=== PATIENT | male | born 1975 | race Caucasian/White ===

== ENCOUNTER 2016-09-30 14:44 | Emergency (ER) | payer OTHER ==
[~2016-09-30] VITALS: Ht 175.3 cm; Wt 79.2 kg
[2016-09-30 14:46] VITALS: TEMP 36.8; Ht 175.3 cm; Wt 79.2 kg
[2016-09-30] MEDS ORDERED: XYLOCAINE 1%/SOD BICARB 20 ML VIAL INFIL ONE (15:30)
[2016-09-30 16:56] VITALS: BP 123/73; PULSE 64; O2SAT 95
--- NOTE | 2016-10-01 20:01 | EMERGENCY ROOM VISIT NOTE ---
ED Visit Note First contact with patient: 14:51 Chief Complaint: I cut my left middle finger. History of Present Illness: Mr. López is a 41-year-old white male who ambulates into the ED accompanied by his complaining of a left middle finger laceration. 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 He reports he was working on a vehicle's brakes when his hand slipped and struck an object causing a laceration to the middle finger. He reports he attempted to control bleeding prior to arrival at the hospital but was unsuccessful. Currently he is complaining of a stinging pain in the area of his laceration. He rates his discomfort 5/10. His pain is nonradiating. His pain worsens with palpation. He has not identified any alleviating factors related to the pain. He has not taken a medication for pain prior to arrival at the hospital. Associated with his pain he reports a mild numbness sensation to the distal phalanx of the left middle finger. Review of Systems: As noted above in history of present illness. Past Medical History: Patient denies. Current Medications: Patient denies. Allergies to Medications: Patient denies. Social History: Patient is currently employed; he feels safe in his home environment; he admits to tobacco and alcohol use. Tetanus Immunization Status: Patient is unsure. Physical Examination: Vital Signs: Date Time Temp Pulse Resp B/P (MAP) Pulse Ox O2 Delivery O2 Flow Rate FiO2 09/30/16 16:56 64 18 123/73 95 09/30/16 14:46 36.8 83 20 147/78 96 Room Air GENERAL: 41-year-old male in mild distress due to pain, nontoxic-appearing, afebrile and hemodynamically stable. NEUROLOGICAL: Awake, alert and oriented to person, place and time. Answering questions appropriately and following commands. SKIN: Warm, dry and pink. Left Middle Finger. 2.2 cm full-thickness laceration over the lateral aspect of the DIP joint of the left index finger. Mild bleeding. LEFT MIDDLE FINGER: No gross bony deformity. Soft tissue injury as noted above. Mild tenderness over the laceration but no tenderness over the PIP joint or the middle or distal phalanx. Full range of motion and muscle strength in flexion and extension of the PIP and DIP joints. Throughout the finger the skin was warm and pink and capillary refill is brisk. He was able to distinguish light sensations through all dermatomes. ED Course: Patient is assessed as noted above. Patient's medication list was reviewed. Wound Repair: Complexity: Basic Verbal consent was obtained after the risks and benefits were explained. A digital block was performed with a total of 6 mL of buffered 1% lidocaine. The skin was prepped with betadine and a sterile field set. The wound was explored for foreign bodies and none found. Patient's finger and hand was cleansed with a surgical scrub brush. Copious irrigation was performed using sterile saline. With direct pressure the bleeding subsided. Debridement was not performed. The wound edges were approximated using 5-0 Ethilon with 4 simple interrupted sutures. Hemostasis and excellent approximation was achieved. Antibacterial ointment and a sterile dressing applied. The finger was placed in a metal finger splint. No complications and the patient tolerated the procedure well. Patient was educated about tonight's findings and instructed on his treatment plan; he verbalizes understanding and agreement with this plan. Clinical Impression: Laceration of the left middle finger. Disposition: Patient discharged home in stable condition; prior to departure he was reassessed and subjectively reported he was feeling much better. Plan: Comfort measures, wound care, and signs of infection were discussed with the patient. Patient was encouraged to follow-up with Workmen's Compensation or return to the ED for any signs of infection and/or suture removal in 10-12 days.
== END 2016-09-30 16:57 | disposition home or self-care (01) ==
LOC: C.EDB 14:45 → C.EDD 16:57
DX: S61.213A Laceration without foreign body of left middle finger without damage to nail, initial encounter (principal); W22.8XXA Striking against or struck by other objects, initial encounter; Y99.0 Civilian activity done for income or pay; F17.200 Nicotine dependence, unspecified, uncomplicated

== ENCOUNTER 2016-10-10 08:17 | Emergency (ER) | payer OTHER ==
[~2016-10-10] VITALS: Ht 177.8 cm; Wt 79.1 kg
[2016-10-10 08:22] VITALS: BP 135/86; PULSE 84; TEMP 36.8; O2SAT 97; Ht 177.8 cm; Wt 79.1 kg
--- NOTE | 2016-10-10 08:53 | EMERGENCY ROOM VISIT NOTE ---
ED Visit Note First contact with patient: 08:22 CHIEF COMPLAINT: Suture removal. HISTORY OF PRESENT ILLNESS: Mr. López is a 41-year-old male who ambulates into the ED requesting suture removal for left finger laceration he sustained 10 days ago. There has been no pain, swelling, redness, or drainage from the wound and he feels like the laceration is healing well. PHYSICAL EXAM: Vital Signs: Date Time Temp Pulse Resp B/P (MAP) Pulse Ox O2 Delivery O2 Flow Rate FiO2 10/10/16 08:22 36.8 84 20 135/86 97 Room Air General: 41-year-old white male in no acute distress, nontoxic-appearing, afebrile and hemodynamically stable. Neurological: Awake, alert and oriented 3. Answering questions appropriately and following commands. Left Middle Finger: Clean dry and intact wound without signs of infection ( erythema, swelling, tenderness, purulent drainage). Patient does report he still has some mild numbness sensation over the distal phalanx. ED COURSE: Patient is assessed as noted above. 4 sutures were removed without any difficulty and there was no separation of the wound edges. Patient is educated about today's findings and instructed on his treatment plan ; he verbalized understanding and agreement with this plan. DISPOSITION: Patient discharged home in stable condition. CLINICAL IMPRESSION: Suture removal; Well healing laceration. PLAN: Patient was encouraged to continue his current treatment plan for wound care and signs of infection. Patient was encouraged return ED for any signs of infection or any new/ concerning symptoms.
== END 2016-10-10 08:39 | disposition home or self-care (01) ==
LOC: C.EDB 08:19
DX: S61.213D Laceration without foreign body of left middle finger without damage to nail, subsequent encounter (principal); X58.XXXD Exposure to other specified factors, subsequent encounter

== ENCOUNTER 2017-05-14 08:02 | Emergency (ER) | payer BC, OTHER ==
[~2017-05-14] VITALS: Ht 175.3 cm; Wt 79.9 kg
[2017-05-14 08:06] VITALS: TEMP 37.2; Ht 175.3 cm; Wt 79.9 kg
--- NOTE | 2017-05-14 08:28 | EMERGENCY ROOM VISIT NOTE ---
History First contact with patient: 08:09 Chief Complaint: FLU LIKE SX Stated Complaint: FLU LIKE SX FOR PAST 4 DAYS History of Present Illness The patient is a 42 year old male who presents to the Emergency Room with complaints of flulike symptoms for the past 4 days. The patient reports he has had a cough, nasal congestion, body aches, and intermittent fevers for the past 4 days. The cough is productive of yellowish mucus in the morning. He reports he has had intermittent fevers and sweats but is unsure how high his temperature has been. His throat has been slightly sore and he also reports a headache. He has been taking Kori-Reliance, DayQuil, NyQuil and Advil without relief. He did not take any medication prior to arrival today. He rates his overall discomfort a 2/10. He has been eating and drinking normally. He denies nausea/vomiting, chest pain, shortness of breath or changes in bowel movements. He denies any sick contacts. Review of Systems A complete 10 point review of systems was reviewed with the patient with pertinent positives and negatives as per history of present illness. All else were negative. Past Medical/Surgical History Medical Problems: (1) No significant active problems Social History Smoking Status: Former Smoker Alcohol Use: occasionally Marital Status: , in relationship Housing Status: lives with family Current/Historical Medications No Active Prescriptions or Reported Meds Physical Exam Vital Signs Date Time Temp Pulse Resp B/P (MAP) Pulse Ox O2 Delivery O2 Flow Rate FiO2 05/14/17 09:21 85 18 134/76 98 Room Air 05/14/17 08:06 37.2 87 18 137/88 95 Room Air Physical Exam VITALS: Vitals are noted on the nurse's note and reviewed by myself. Vital signs stable. GENERAL: This is a 42-year-old male, in no acute distress, nondiaphoretic, well- developed well-nourished. SKIN: The skin was without rashes. EARS: External auditory canals clear, tympanic membranes pearly bunn without erythema or effusion bilaterally. EYES: Pupils equal round and reactive to light and accommodation. NOSE: Patent, turbinates without inflammation or discharge. MOUTH: Mucous membranes moist. Tonsils are not enlarged. Pharynx minimally erythematous. No exudate. NECK: Supple without nuchal rigidity. No lymphadenopathy. HEART: Regular rate and rhythm without murmurs gallops or rubs. LUNGS: Clear to auscultation bilaterally without wheezes, rales or rhonchi. No retractions or accessory muscle use. NEURO: Patient was alert and oriented to person place and time. Medical Decision & Procedures ER Provider Diagnostic Interpretation: TWO VIEW CHEST CLINICAL HISTORY: Cough and flulike symptoms. FINDINGS: PA and lateral chest radiographs are obtained. No prior studies are available for comparison at the time of dictation. The cardiomediastinal silhouette is unremarkable. The lungs and pleural spaces are clear. There is no pneumothorax. The bony thorax appears intact. IMPRESSION: No active disease in the chest. Laboratory Results Test 05/14/17 08:20 Influenza Type A Antigen Neg for Influ A (NEG) Influenza Type B Antigen POS for Influ B (NEG) Medical Decision Differential diagnosis includes pneumonia, influenza, viral illness, bronchitis , among others. The patient was evaluated as above. Chest x-ray was negative. Influenza B was found to be positive. Benefits/risks of Tamiflu were discussed with the patient. As the patient has already had symptoms for 4 days, I do not feel he would be a great candidate for this medication. The patient agreed that he would like to forego this medication at this time. I discussed conservative measures including alternating Tylenol/ibuprofen as well as staying well hydrated. Patient was given a note for a few days off of work. He verbalized his understanding of my assessment and treatment plan and was discharged home in good condition. Medication Reconcilliation Current Medication List: was personally reviewed by me Blood Pressure Screening Patient's blood pressure: Normal blood pressure Impression Primary Impression: Influenza B Departure Information Dispostion Home / Self-Care Condition GOOD Prescriptions No Active Prescriptions or Reported Meds Referrals No Doctor, Assigned (PCP) Patient Instructions My [facility] Additional Instructions You were seen today and diagnosed with influenza B. This is a viral illness which will get better on its own. For pain/fever control, you can use the following [id number] medicines ( if >12 yo): -Extra strength (500 mg/tab) Tylenol (acetaminophen) 1-2 tabs every 6 hours as needed. Do not exceed 12 tablets in a 24 hour period. Avoid taking more than 4 grams (4000 mg) of Tylenol per day. This includes any other sources of acetaminophen you may take on a regular basis. - Regular strength (200 mg/tab) Advil (ibuprofen) 3-4 tabs every 6 hours as needed. Do not exceed a dose of 3200 mg per day. Make sure to rest and drink plenty of fluids so that you stay well-hydrated. You may take [id number] medications for your symptoms. A decongestant such as Sudafed may help your nasal congestion during the day. You can try a cough syrup such as Delsym at night to help with your cough. This may make you drowsy. Follow-up with your primary care provider this week for a recheck as needed. Return to the emergency department with worsening cough, high fevers not controlled by Tylenol/ibuprofen, difficulty breathing, or any other new/ concerning symptoms.
--- NOTE | 2017-05-14 08:53 | DIAGNOSTIC IMAGING REPORT ---
TWO VIEW CHEST CLINICAL HISTORY: Cough and flulike symptoms. FINDINGS: PA and lateral chest radiographs are obtained. No prior studies are available for comparison at the time of dictation. The cardiomediastinal silhouette is unremarkable. The lungs and pleural spaces are clear. There is no pneumothorax. The bony thorax appears intact. IMPRESSION: No active disease in the chest. Electronically signed by: Ruben Wen M.D. 05/14/2017 8:51 AM Dictated Date/Time: 05/14/2017 8:51 AM
[2017-05-14 08:55] LABS: INFLUENZA B ANTIGEN POS for Influ B (NEG)
[2017-05-14 09:21] VITALS: BP 134/76; PULSE 85; O2SAT 98
== END 2017-05-14 09:22 | disposition home or self-care (01) ==
LOC: C.EDB 08:03 → C.EDA 09:22
DX: J10.1 Influenza due to other identified influenza virus with other respiratory manifestations (principal); Z87.891 Personal history of nicotine dependence